=== PATIENT | female | born 1965 | race Caucasian/White ===

== ENCOUNTER 2019-09-14 10:41 | Outpatient (CLI) | payer OTHER | END 2019-09-14 10:43 | disposition home or self-care (01) | LOC: SONOGRAMA 10:41 → MAMO-SONO 11:15 | DX: M50.90 Cervical disc disorder, unspecified, unspecified cervical region (principal); M79.7 Fibromyalgia; M60.88 Other myositis, other site; M51.36 Other intervertebral disc degeneration, lumbar region; M72.8 Other fibroblastic disorders ==

== ENCOUNTER → 2020-06-15 | Outpatient (CLI) | payer OTHER | END | disposition home or self-care (01) | LOC: TOM 09:12 | PROVIDERS: ATTEND Specialist | DX: K76.0 Fatty (change of) liver, not elsewhere classified (principal); K57.90 Diverticulosis of intestine, part unspecified, without perforation or abscess without bleeding; R05 Cough; Z12.31 Encounter for screening mammogram for malignant neoplasm of breast; N60.11 Diffuse cystic mastopathy of right breast; N60.12 Diffuse cystic mastopathy of left breast; M25.531 Pain in right wrist; M25.532 Pain in left wrist | CPT/HCPCS: 71046; 73130; 74177; 76641; 77067; Q9965 ==

== ENCOUNTER 2021-06-27 09:22 | Outpatient (CLI) | payer OTHER | END 2021-06-27 09:41 | disposition home or self-care (01) | LOC: MAMO-SONO 09:22 | PROVIDERS: ATTEND Specialist | DX: M06.89 Other specified rheumatoid arthritis, multiple sites (principal); R92.8 Other abnormal and inconclusive findings on diagnostic imaging of breast; N63.23 Unspecified lump in the left breast, lower outer quadrant; N63.13 Unspecified lump in the right breast, lower outer quadrant; M50.90 Cervical disc disorder, unspecified, unspecified cervical region; M79.7 Fibromyalgia; M60.89 Other myositis, multiple sites; M51.36 Other intervertebral disc degeneration, lumbar region; M72.2 Plantar fascial fibromatosis; M19.09 Primary osteoarthritis, other specified site; M51.37 Other intervertebral disc degeneration, lumbosacral region; M19.042 Primary osteoarthritis, left hand; G56.02 Carpal tunnel syndrome, left upper limb ==

== ENCOUNTER 2022-03-19 14:08 | Outpatient (CLI) | payer OTHER | END 2022-03-19 14:18 | disposition home or self-care (01) | LOC: RAD 14:08 | PROVIDERS: ATTEND Specialist | DX: M17.0 Bilateral primary osteoarthritis of knee (principal); M50.90 Cervical disc disorder, unspecified, unspecified cervical region; M51.26 Other intervertebral disc displacement, lumbar region; M41.30 Thoracogenic scoliosis, site unspecified ==

== ENCOUNTER 2022-03-27 10:06 | Outpatient (CLI) | payer OTHER | END 2022-03-27 10:12 | disposition home or self-care (01) | LOC: SONOGRAMA 10:06 | PROVIDERS: ATTEND Specialist | DX: R10.2 Pelvic and perineal pain (principal) ==

== ENCOUNTER 2022-03-27 10:54 | Outpatient (CLI) | payer OTHER | END 2022-03-27 10:56 | disposition home or self-care (01) | LOC: NUCLEAR 10:54 | PROVIDERS: ATTEND Specialist | DX: M81.0 Age-related osteoporosis without current pathological fracture (principal) ==

== ENCOUNTER 2022-05-06 11:59 | Outpatient (CLI) | payer OTHER | END 2022-05-06 12:00 | disposition home or self-care (01) | LOC: SONOGRAMA 11:59 | DX: E07.9 Disorder of thyroid, unspecified (principal); R94.6 Abnormal results of thyroid function studies ==

== ENCOUNTER 2022-09-06 13:57 | Outpatient (CLI) | payer OTHER | END 2022-09-06 14:05 | disposition home or self-care (01) | LOC: MAMO-SONO 13:57 | PROVIDERS: ATTEND Specialist | DX: N60.11 Diffuse cystic mastopathy of right breast (principal); N60.12 Diffuse cystic mastopathy of left breast; M50.90 Cervical disc disorder, unspecified, unspecified cervical region; M41.30 Thoracogenic scoliosis, site unspecified; M54.10 Radiculopathy, site unspecified; M45.0 Ankylosing spondylitis of multiple sites in spine ==

== ENCOUNTER 2022-12-24 11:56 | Outpatient (CLI) | payer OTHER | END 2022-12-24 12:02 | disposition home or self-care (01) | LOC: RAD 11:56 | PROVIDERS: ATTEND Specialist | DX: J32.9 Chronic sinusitis, unspecified (principal) ==

== ENCOUNTER → 2023-03-19 | Outpatient (CLI) | payer OTHER | END | disposition home or self-care (01) | LOC: RAD 14:50 | PROVIDERS: ATTEND Specialist | DX: M79.642 Pain in left hand (principal); M79.641 Pain in right hand; M19.041 Primary osteoarthritis, right hand; M19.042 Primary osteoarthritis, left hand ==

== ENCOUNTER 2023-09-23 09:23 | Outpatient (CLI) | payer OTHER | END 2023-09-23 09:33 | disposition home or self-care (01) | LOC: MAMO-SONO 09:23 | PROVIDERS: ATTEND Specialist | DX: N60.11 Diffuse cystic mastopathy of right breast (principal); N60.12 Diffuse cystic mastopathy of left breast; R10.12 Left upper quadrant pain; R10.32 Left lower quadrant pain; Z12.31 Encounter for screening mammogram for malignant neoplasm of breast ==

== ENCOUNTER 2024-08-25 12:11 | Outpatient (CLI) | payer OTHER | END 2024-08-25 12:17 | disposition home or self-care (01) | LOC: SONOGRAMA 12:11 | PROVIDERS: ATTEND Specialist | DX: M50.90 Cervical disc disorder, unspecified, unspecified cervical region (principal); M79.7 Fibromyalgia; M60.9 Myositis, unspecified; M65.30 Trigger finger, unspecified finger; G56.00 Carpal tunnel syndrome, unspecified upper limb; M72.2 Plantar fascial fibromatosis; M19.049 Primary osteoarthritis, unspecified hand; M45.0 Ankylosing spondylitis of multiple sites in spine; M51.361 Other intervertebral disc degeneration, lumbar region with lower extremity pain only ==

== ENCOUNTER 2024-11-08 11:13 | Outpatient (CLI) | payer OTHER | END 2024-11-08 11:15 | disposition home or self-care (01) | LOC: RAD 11:13 | PROVIDERS: ATTEND Specialist | DX: M50.90 Cervical disc disorder, unspecified, unspecified cervical region (principal); M79.10 Myalgia, unspecified site; M65.30 Trigger finger, unspecified finger; G56.00 Carpal tunnel syndrome, unspecified upper limb; M19.049 Primary osteoarthritis, unspecified hand; M51.360 Other intervertebral disc degeneration, lumbar region with discogenic back pain only; M72.2 Plantar fascial fibromatosis; J18.9 Pneumonia, unspecified organism; M17.0 Bilateral primary osteoarthritis of knee; M22.42 Chondromalacia patellae, left knee ==

== ENCOUNTER 2024-11-17 07:58 | Outpatient (CLI) | payer OTHER | END 2024-11-17 08:00 | disposition home or self-care (01) | LOC: MAMO-SONO 07:58 | PROVIDERS: ATTEND Specialist | DX: R16.0 Hepatomegaly, not elsewhere classified (principal); R10.2 Pelvic and perineal pain; N60.11 Diffuse cystic mastopathy of right breast; N60.12 Diffuse cystic mastopathy of left breast; Z12.31 Encounter for screening mammogram for malignant neoplasm of breast ==

== ENCOUNTER → 2025-05-02 | Outpatient (CLI) | payer OTHER | END | disposition home or self-care (01) | LOC: SONOGRAMA 12:23 | DX: E04.9 Nontoxic goiter, unspecified (principal); E04.2 Nontoxic multinodular goiter; R94.6 Abnormal results of thyroid function studies ==

== ENCOUNTER 2025-05-04 10:43 | Outpatient (CLI) | payer OTHER | END 2025-05-04 10:45 | disposition home or self-care (01) | LOC: MRI 10:43 | PROVIDERS: ATTEND Specialist | DX: M51.362 Other intervertebral disc degeneration, lumbar region with discogenic back pain and lower extremity pain (principal); M48.061 Spinal stenosis, lumbar region without neurogenic claudication; M79.7 Fibromyalgia; M60.9 Myositis, unspecified; M65.30 Trigger finger, unspecified finger; G56.00 Carpal tunnel syndrome, unspecified upper limb; M19.049 Primary osteoarthritis, unspecified hand; M72.2 Plantar fascial fibromatosis | CPT/HCPCS: 72148 ==